=== PATIENT | male | born 1950 | race Two or more races ===

== ENCOUNTER 2018-10-23 08:22 | Emergency (ER) | payer BC, MEDICARE ==
[~2018-10-23] VITALS: Ht 177.8 cm; Wt 93.0 kg
[~2018-10-23 08:22] MED LIST: BENTYL10 MG ORAL; FLOMAX0.4 MG ORAL; IBUPROFEN600 MG ORAL; NKM; NORCO 5-325 TA1 EACH ORAL; RANITIDINE HCL150 MG ORAL
[2018-10-23 08:45] VITALS: BP 158/90
--- NOTE | 2018-10-23 08:57 | Emergency Room Report ---
History of Present Illness General Chief Complaint: Back Pain-No Injury Source: Patient Present Illness HPI Patient presents with right lower back pain radiating down and to his leg. He' s had this problem for approximately 1 year. He had a massage a few days ago and the person worked on his back and since that time the pain is been worsened. When he is laying flat there's not that much pain. When he tries to get up or stands stands to walk the pain is worsened. There is no numbness, incontinence, fevers, blood thinners, oncologic problems. The patient denies any dysuria. The pain is rated 10/10 at this time and there's aching and also somewhat sharp as it radiates down into the right thigh. He was seen once before and told that this might be sciatica. The patient is not hypertensive or diabetic. Patient recently had hernia repair on the left-hand side. This is not a problem at that time. The patient's had accidents in the past but has never required physical therapy. There's been no imaging studies done in the past. No chest pain, dyspnea, cough, rashes, change in bowels. 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 Nursing Documentation: PMH: Agreed; PSxH: Agreed Nursing Documentation-PM Past Medical History: No History, Except For Hx Cardiac Problems: No Hx Hypertension: Yes Hx Cancer: No Hx Gastrointestinal Problems: Yes Hx Neurological Problems: No Review of Systems All Other Systems: negative except mentioned in HPI Physical Exam Vital Signs Date Time Temp Pulse Resp B/P (MAP) Pulse Ox O2 Delivery O2 Flow Rate FiO2 10/23/18 08:26 97.9 73 14 158/90 97 Room Air Sp02 EP Interpretation: reviewed, normal General Appearance: well appearing, no apparent distress, GCS 15 Head: normocephalic Eyes: bilateral eye normal inspection, bilateral eye PERRL ENT: moist mucus membranes Neck: supple Respiratory: chest non-tender, lungs clear, normal breath sounds Cardiovascular #1: regular rate, rhythm Cardiovascular #2: 2+ radial (R) Gastrointestinal: normal inspection, normal bowel sounds, non tender, no mass, non-distended Musculoskeletal: normal range of motion, other - walking slightly hunched over , tender - lumbar spine with some pain radiating R thigh with SLR at 90 degrees. No crossover pain Neurologic: alert, oriented x3, motor strength/tone normal, DTRs symmetric, sensory intact, cerebellar normal, speech normal, no Babinski Psychiatric: mood/affect normal Skin: normal inspection, warm/dry Medical Decision Making Diagnostic Impression: Primary Impression: Lumbar adjacent segment disease with spondylolisthesis Additional Impression: Back pain Qualified Codes: M54.41 - Lumbago with sciatica, right side ER Course Patient presents with back pain and radiating to his right leg. Differential includes degenerative disc disease, back strain, sciatica, UTI amongst others. Patient will be evaluated with CT of the back and urinalysis. CT the back is performed because of age and symptoms. The patient will be given at shot of Toradol and Tylenol. Based on normal distal neurologic exam, doubt surgical emergency. Urinalysis is unremarkable. CT of the back shows spondylolisthesis with retropulsion L4-L5 and bone on bone disease higher in the lumbar spine area and L4-L5. The patient is improved after treatment. Patient is stable for outpatient observation and treatment. Laboratory Tests Test 10/23/18 08:40 Urine Color Pale yellow Urine Appearance Clear Urine pH 7 (4.5-8.0) Urine Specific [place] 1.010 (1.005-1.035) Urine Protein Negative (NEGATIVE) Urine Glucose (UA) Negative (NEGATIVE) Urine Ketones Negative (NEGATIVE) Urine Blood 1+ (NEGATIVE) H Urine Nitrite Negative (NEGATIVE) Urine Bilirubin Negative (NEGATIVE) Urine Urobilinogen Normal MG/DL (0.0-1.0) Urine Leukocyte Esterase Negative (NEGATIVE) Urine RBC 2-4 /HPF (0 - 0) H Urine WBC 0-2 /HPF (0 - 0) Urine Squamous Epithelial Cells Occasional /LPF Urine Amorphous Sediment Few /LPF (NONE) H Urine Bacteria Occasional /HPF (NONE) CT/MRI/US Diagnostic Results CT/MRI/US Diagnostic Results : Imaging Test Ordered: LS spine Impression spondylolisthesis L 4-5 - neuroforaminal narrowing bilat with par defects and DJD - see report. Non obstructive renal stones. Last Vital Signs Date Time Temp Pulse Resp B/P (MAP) Pulse Ox O2 Delivery O2 Flow Rate FiO2 10/23/18 10:35 97.9 88 16 146/80 100 Room Air Status: improved Disposition: HOME, SELF-CARE Condition: Improved Scripts Tramadol Hcl* (ULTRAM*) 50 Mg Tablet 50 MG ORAL Q6H PRN for For Pain, #8 TAB 0 Refills Prov: Sedrick Richard MD 10/23/18 Ibuprofen* (MOTRIN*) 600 Mg Tablet 600 MG ORAL Q6H PRN for For Pain, #20 TAB Prov: Sedrick iRchard MD 10/23/18 Sedrick Richard MD Oct 23, 2018 08:57
[2018-10-23] MEDS ORDERED: Ketorolac 30mg Inj IM ONE (09:00)
[2018-10-23] MEDS ORDERED: Acetaminophen 500mg (ES) tab ORAL ONE (09:00)
[2018-10-23 09:07] LABS: APPEARANCE,URINE CLEAR; BILIRUBIN, URINE NEGATIVE (NEGATIVE); COLOR,URINE PALE YELLOW; GLUCOSE, URINE (UA) NEGATIVE (NEGATIVE); KETONES,URINE NEGATIVE (NEGATIVE); LEUKOCYTE ESTERASE ,URINE NEGATIVE (NEGATIVE); NITRITE,URINE NEGATIVE (NEGATIVE); PH,URINE 7 (4.5-8.0); PROTEIN,URINE NEGATIVE (NEGATIVE); UROBILINOGEN,URINE NORMAL MG/DL (0.0-1.0)
[2018-10-23] MEDS ORDERED: IBUPROFEN600 MG ORAL (10:28)
[2018-10-23] MEDS ORDERED: TRAMADOL HCL50 MG ORAL (10:28)
[2018-10-23 10:35] VITALS: BP 146/80
--- NOTE | 2018-10-23 11:26 | Diagnostic Imaging Report ---
EXAM: CT Lumbar Spine Without Intravenous Contrast CLINICAL HISTORY: BK PAIN TECHNIQUE: Axial computed tomography images of the lumbar spine without intravenous contrast. CTDI is 18.28 mGy and DLP is 620 mGy-cm. One or more of the following dose reduction techniques were used: automated exposure control, adjustment of the mA and/or kV according to patient size, use of iterative reconstruction technique. COMPARISON: CT abdomen and pelvis report for 03/19/16, images not available. FINDINGS: Vertebrae: 11 mm anterolisthesis of L4 on L5 from bilateral pars defects. Old left L1 transverse process fracture. Anterior marginal osteophytes multiple levels. No acute fracture. Discs/spinal canal/neural foramina: L1-L2 moderate to severe disc space narrowing. Broad-based disc bulge and facet arthropathy. Mild central canal narrowing. Moderate to severe right neural foraminal narrowing. Mild left neural foraminal narrowing. L2-3 broad-based disc bulge. Facet arthropathy. Xrvl-[id number]-[id number] central canal narrowing. Mild to moderate bilateral neural foraminal narrowing. L3-4 mild broad-based disc bulge. No significant stenosis. L4-5 spondylolisthesis with pars defects. Severe L4-5 disc space narrowing and endplate sclerosis. Mild central canal narrowing. Severe left neural foraminal narrowing. Moderate to severe right neural foraminal narrowing. L5-S1. No significant stenosis. Soft tissues: Unremarkable. Kidneys and ureters: Nonobstructive bilateral renal stones. IMPRESSION: 1. Nonobstructive bilateral renal stones, largest 4 mm. 2. 11 mm anterolisthesis of L4 on L5 from bilateral pars defects. Severe L4-5 disc space narrowing and endplate sclerosis. 3. L1-L2 moderate to severe disc space narrowing. Broad-based disc bulge and facet arthropathy. Mild central canal narrowing. Moderate to severe right neural foraminal narrowing. Mild left neural foraminal narrowing. 4. L4-5 spondylolisthesis with pars defects. Mild central canal narrowing. Severe left neural foraminal narrowing. Moderate to severe right neural foraminal narrowing.
== END 2018-10-23 10:35 | disposition home or self-care (01) ==
LOC: EMR 09:22
DX: M43.16 Spondylolisthesis, lumbar region (principal); M53.87 Other specified dorsopathies, lumbosacral region; M54.41 Lumbago with sciatica, right side; N20.0 Calculus of kidney; I10 Essential (primary) hypertension
CPT/HCPCS: 72131; 81003; 96372; 99284; J1885